=== PATIENT | male | born 1995 | race Caucasian/White ===

== ENCOUNTER 2020-10-25 22:37 | Emergency (ER) | payer OTHER ==
[2020-10-25 23:52] LABS: BASOPHIL 0.4 % (0-2); EOSINOPHIL 4.6 % (0-5); HCT 41.7 % (42.0-52.0); LYMPHOCYTE 35.3 % (15-48); MCH 29.2 pg (25.0-31.0); MCHC 33.6 g/dL (32.0-36.0); MCV 86.9 fL (78.0-100.0); MONOCYTE 7.6 % (0-12); MPV 9.9 fL (6.0-9.5); NEUTROPHIL 51.8 % (41-80); NRBC 0; PLT 238 K/uL (150-400); RDW 12.1 % (11.5-14.0); WBC 8.9 K/uL (4.0-10.5)
[2020-10-26 00:16] LABS: ALBUMIN 3.5 g/dL (3.4-5.0); BILIRUBIN - TOTAL 0.5 mg/dL (0.2-1.0); BUN/CREAT RATIO (CALC) 18.8 RATIO; CREATININE 0.8 mg/dL (0.67-1.17); GLOBULIN (CALCULATION) 3.9 g/dL; POTASSIUM 3.6 mmol/L (3.5-5.1); TOTAL PROTEIN 7.4 g/dL (6.4-8.2)
== END 2020-10-26 01:00 | disposition home or self-care (01) ==
LOC: FER 22:37
PROVIDERS: Emergency Medicine
DX: T67.5XXA Heat exhaustion, unspecified, initial encounter (principal); F17.210 Nicotine dependence, cigarettes, uncomplicated; X30.XXXA Exposure to excessive natural heat, initial encounter
CPT/HCPCS: 36415; 80053; 85025; 99284; J7030